=== PATIENT | female | born 1960 | race Caucasian/White ===

== ENCOUNTER 2016-12-16 08:36 | Emergency (ER) | payer OTHER, MEDICARE ==
[~2016-12-16] VITALS: Ht 170.2 cm; Wt 60.0 kg
[2016-12-16 09:00] VITALS: BP 136/61; PULSE 88; RESP 18; TEMP 99.3; O2SAT 97
[2016-12-16 09:06] VITALS: BP 136/61; PULSE 78; RESP 18; TEMP 99.3; O2SAT 97
[2016-12-16 09:28] LABS: HEMATOCRIT 34.6 % (35.0-46.0); MEAN CORPUSCULAR HEMOGLOBIN 24.6 PG (27.0-34.0); MEAN CORPUSCULAR HGB CONC 30.7 % (32.0-36.0); PLATELET COUNT 600 TH/MM3 (150-450); RED BLOOD COUNT 4.33 MIL/MM3 (4.00-5.30); WHITE BLOOD COUNT 22.2 TH/MM3 (4.0-11.0)
[2016-12-16 09:37] LABS: HEMO FLAGS AUTO DIFF
[2016-12-16 09:40] LABS: ANION GAP 10 MEQ/L (5-15); AST (GOT) 41 U/L (15-37); BICARBONATE 25.6 MEQ/L (21.0-32.0); BLOOD UREA NITROGEN 11 MG/DL (7-18); CHLORIDE 105 MEQ/L (98-107); GLOMERULAR FILTRATION RATE 85 ML/MIN (>89); POTASSIUM 4.2 MEQ/L (3.5-5.1); SODIUM (NA) 141 MEQ/L (136-145)
[2016-12-16 09:44] LABS: ALKALINE PHOSPHATASE 59 U/L (45-117); ALT (GPT) 48 U/L (10-53); TOTAL BILIRUBIN ADULT 0.3 MG/DL (0.2-1.0)
[2016-12-16 09:52] LABS: AMPHETAMINE, URINE NEG (NEG); BARBITURATES, URINE NEG (NEG); COCAINE, URINE NEG (NEG)
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
[2016-12-16 10:08] LABS: BANDS 1 % (0-6); NEUTROPHIL # MANUAL DIFF 20.9 TH/MM3 (1.8-7.7); POLYS (SEG NEUTROPHILS) 93 % (16-70); WBC DIFF SAMPLE 100
[2016-12-16 10:09] LABS: PLATELET MORPHOLOGY NORMAL (NORMAL); SCAN/DIFF FINAL DIFF MANUAL
[2016-12-16 10:10] LABS: PLATELET ESTIMATE SMEAR HIGH (NORMAL)
[2016-12-16 10:39] LABS: BACTERIA, URINE OCC /hpf; BLOOD, URINE NEG (NEG); GLUCOSE,URINE NEG (NEG); HYALINE CAST, URINE 1 /lpf (RARE); KETONE, URINE NEG (NEG); MUCUS URINE FEW /lpf (OCC); NITRITE,URINE NEG (NEG); PH, URINE 6.5 (5.0-8.5); SQUAMOUS EPITHELIAL CELL URINE <1 /hpf (0-5); TRANSITIONAL EPI CELLS, URINE <1 /hpf; URINE COLOR YELLOW (YELLW/STRAW)
[2016-12-16 10:40] LABS: COMMENT (UR) CULTURE INDICATED; CULTURE IF INDICATED CULTURE INDICATED
[2016-12-16] MEDS ORDERED: CEPH-460 PO (10:45)
[2016-12-16] MEDS ORDERED: CEPHALEXIN MONOHYDRATE 500 MG CAP PO ONE (10:45)
[2016-12-16 12:00] VITALS: BP 141/68; PULSE 82; RESP 18; TEMP 99.3; O2SAT 97
[2016-12-16] MEDS ORDERED: TRAM50TA PO (13:23)
[2016-12-16] MEDS ORDERED: ALPR.5 PO (13:23)
[2016-12-16] MEDS ORDERED: PRED10 PO (13:23)
[2016-12-16] MEDS ORDERED: MOTR200T4 PO (13:23)
[2016-12-16] MEDS: CEPHALEXIN MONOHYDRATE 500 MG CAP PO SCH (14:00)
[2016-12-16 15:00] VITALS: BP 159/86; PULSE 91; RESP 16; TEMP 99.2; O2SAT 96
--- NOTE | 2016-12-16 18:13 | PD ---
History of Present Illness Chief Complaint: Psychiatric Symptoms Time Seen by Provider: 15:00 Travel History International Travel<30 Days: No Contact w/Intl Traveler<30days: No Known affected area: No Legal Status Legal Status: Espinal Act Espinal Act Signed By: Jeannette Maya History of Present Illness: History of Present Illness HPI 56-year-old female with no reported psychiatric history who is in ED under a BA. Patient reportedly made a suicidal statement to her who called 911 and she was therefore placed under a BA. EMR is reviewed. No prior contact with [facility] Patient has been monitored in [facility] and she has presented no suicidality. She is alert and oriented, engaging and cooperative. Her speech is clear and logical. She does not present any psychosis and no garcia. She denies any suicidal ideation or intent . She admits to having said that she is tired of living with pain but that she is not suicidal. She feels overwhelmed at times . PFSH Past Medical History Autoimmune Disease: Yes (RA) Bipolar Disorder: Yes Anxiety: Yes Depression: Yes Psychiatric: Yes (PTSD ) Tetanus Vaccination: Unknown Influenza Vaccination: No ?: Not : 4 Para: 3 Miscarriage: 1 Past Surgical History Section: Yes Cholecystectomy: Yes Gynecologic Surgery: Yes (ENDOMETRIOSIS SURGERY) Tonsillectomy: Yes Psychiatric History Psychiatric History Hx Psychiatric Treatment: received [facility] in [place]. History of Inpatient Treatment: Yes Guns or firearms in home: No Social History female that lives with her Hx Alcohol Use: No Hx Tobacco Use: No Hx Substance Use: No Hx of Substance Use Treatment: No Family Psychiatric History negative Allergies-Medications (Allergen,Severity, Reaction): Coded Allergies: No Known Allergies (Unverified , 12/16/16) Reported Meds & Prescriptions Reported Meds & Active Scripts Active Keflex (Cephalexin) 500 Mg Cap 500 Mg PO Q8H 7 Days Reported Xanax (Alprazolam) 0.5 Mg Tab 0.5 Mg PO Q8H PRN Motrin Ib (Ibuprofen) 200 Mg Tab 800 Mg PO Q6HR PRN Tramadol (Tramadol HCl) 50 Mg Tab 50 Mg PO Q6H PRN Prednisone 10 Mg Tab 10 Mg PO DAILY Review of Systems Constitutional: COMPLAINS OF: Weight loss Endocrine: DENIES: Abnorml menstrual pattern, Heat/cold intolerance, Polydipsia , Polyuria, Polyphagia Eyes: DENIES: Blurred vision, Diplopia, Eye inflammation, Eye pain, Vision loss , Photosensitivity, Double Vision Ears, nose, mouth, throat: DENIES: Tinnitus, Hearing loss, Vertigo, Nasal discharge, Oral lesions, Throat pain, Hoarseness, Ear Pain, Running Nose, Epistaxis, Sinus Pain, Toothache, Odynophagia Respiratory: DENIES: Apneas, Cough, Snoring, Wheezing, Hemoptysis, Sputum production, Shortness of breath Cardiovascular: DENIES: Chest pain, Palpitations, Syncope, Dyspnea on Exertion , PND, Lower Extremity Edema, Orthopnea, Claudication Gastrointestinal: DENIES: Abdominal pain, Black stools, Bloody stools, Constipation, Diarrhea, Nausea, Vomiting, Difficulty Swallowing, Anorexia Genitourinary: DENIES: Abnormal vaginal bleeding, Dysmenorrhea, Dyspareunia, Sexual dysfunction, Urinary frequency, Urinary incontinence, Urgency, Hematuria , Dysuria, Nocturia, Vaginal discharge Musculoskeletal: COMPLAINS OF: Joint pain, Muscle aches, Stiffness Integumentary: DENIES: Abnormal pigmentation, Pruritus, Rash, Nail changes, Breast masses, Breast skin changes, Nipple discharge Hematologic/lymphatic: DENIES: Bruising, Lymphadenopathy Immunologic/allergic: DENIES: Eczema, Urticaria Neurologic: COMPLAINS OF: Poor Balance Psychiatric: COMPLAINS OF: Anxiety, Depression Exam Alert: Yes [place]: Person (ox4) Mood: Calm Affect: Tearful Speech: Clear, Logical Eye Contact: Normal Memory Intact: Comment (no impairmetn) Hallucinations: Other (negative) Delusions: No Suicidal: Ideation (deneis any) Homicidal: Ideation (deneis any) Insight/Judgement Fair . Not impaired. [facility] Medical Decision Making Medical Record Reviewed: Yes Assessment/Plan Lift BA . Does not meet criteria. Denies any suicidal or homicidal ideation, intent or plan. Orders Complete Blood Count With Diff (12/16/16 08:49) Comprehensive Metabolic Panel (12/16/16 08:49) Psych Screen (12/16/16 08:49) Drug Screen, Random Urine (12/16/16 08:49) Urinalysis - C+S If Indicated (12/16/16 10:11) Urine Culture (12/16/16 09:19) Cephalexin (Keflex) (12/16/16 10:45) Cephalexin (Keflex) (12/16/16 14:00) Diet Regular Basic (12/16/16 Dinner) Results Vital Signs Date Time Temp Pulse Resp B/P Pulse Ox O2 Delivery O2 Flow Rate FiO2 12/16/16 15:00 99.2 91 16 159/86 96 Room Air 12/16/16 12:00 99.3 82 18 141/68 97 Room Air 12/16/16 09:06 81 18 12/16/16 09:06 99.3 78 18 136/61 97 Room Air 12/16/16 09:00 99.3 88 18 136/61 97 Laboratory Tests Test 12/16/16 12/16/16 09:10 09:19 White Blood Count 22.2 Red Blood Count 4.33 Hemoglobin 10.6 Hematocrit 34.6 Mean Corpuscular Volume 80.0 Mean Corpuscular Hemoglobin 24.6 Mean Corpuscular Hemoglobin 30.7 Concent Red Cell Distribution Width 19.0 Platelet Count 600 Mean Platelet Volume 6.7 Neutrophils (%) (Auto) Lymphocytes (%) (Auto) Monocytes (%) (Auto) Eosinophils (%) (Auto) Basophils (%) (Auto) Neutrophils # (Auto) Lymphocytes # (Auto) Monocytes # (Auto) Eosinophils # (Auto) Basophils # (Auto) CBC Comment AUTO DIFF Differential Total Cells 100 Counted Neutrophils % (Manual) 93 Band Neutrophils % 1 Lymphocytes % 4 Monocytes % 2 Neutrophils # (Manual) 20.9 Differential Comment FINAL DIFF MANUAL Platelet Estimate HIGH Platelet Morphology Comment NORMAL Sodium Level 141 Potassium Level 4.2 Chloride Level 105 Carbon Dioxide Level 25.6 Anion Gap 10 Blood Urea Nitrogen 11 Creatinine 0.71 Estimat Glomerular Filtration 85 Rate Random Glucose 113 Calcium Level 8.9 Total Bilirubin 0.3 Aspartate Amino Transf 41 (AST/SGOT) Alanine Aminotransferase 48 (ALT/SGPT) Alkaline Phosphatase 59 Total Protein 7.5 Albumin 3.7 Urine Color YELLOW Urine Turbidity HAZY Urine pH 6.5 Urine Specific [place] 1.015 Urine Protein TRACE Urine Glucose (UA) NEG Urine Ketones NEG Urine Occult Blood NEG Urine Nitrite NEG Urine Bilirubin NEG Urine Urobilinogen LESS THAN 2.0 Urine Leukocyte Esterase MOD Urine RBC 1 Urine WBC 9 Urine Squamous Epithelial <1 Cells Urine Transitional Epithelial <1 Cells Urine Bacteria OCC Urine Hyaline Casts 1 Urine Mucus FEW Microscopic Urinalysis Comment CULTURE INDICATED Urine Opiates Screen NEG Urine Barbiturates Screen NEG Urine Amphetamines Screen NEG Urine Benzodiazepines Screen POS Urine Cocaine Screen NEG Urine Cannabinoids Screen POS Date/Time Procedure Status Source Growth 12/16/16 09:19 Urine Culture Worksheet Urine Clean Catch Pending Diagnosis Primary Impression: UTI (urinary tract infection) Additional Impression: Adjustment disorder Ruled Out: Suicidal ideation Psychiatrically Cleared: Yes Departure Forms: Tests/Procedures Patient Instructions: General Instructions, Mood Disorders (ED) Med/ Other Pt Specific Info: No Change to Meds Prescriptions Cephalexin (Keflex)500 Mg [id number] Mg PO Q8H 7 Days Ref 0 Prov:Mili Pennington MD 12/16/16 Disposition: 01 DISCHARGE HOME Condition: Stable Problem Qualifiers Primary Impression: UTI (urinary tract infection) Qualified Code: N30.00 - Acute cystitis without hematuria Additional Impression: Adjustment disorder Qualified Code: F43.22 - Adjustment disorder with anxious mood Breann Yung Dec 16, 2016 18:13
== END 2016-12-16 18:47 | disposition home or self-care (01) ==
LOC: NEPE 08:36 → NEPJ 18:47
DX: N39.0 Urinary tract infection, site not specified (principal); M06.9 Rheumatoid arthritis, unspecified; R45.851 Suicidal ideations; F43.10 Post-traumatic stress disorder, unspecified; F31.9 Bipolar disorder, unspecified; B96.1 Klebsiella pneumoniae [K. pneumoniae] as the cause of diseases classified elsewhere; F12.10 Cannabis abuse, uncomplicated; F41.8 Other specified anxiety disorders
CPT/HCPCS: 80053; 80307; 81001; 85007; 85027; 87077; 87086; 87186; 99285